=== PATIENT | female | born 1965 | race Caucasian/White ===

== ENCOUNTER 2024-12-28 11:24 | Inpatient (IN) | payer OTHER, SELFPAY ==
[2024-12-28] VITALS (14 sets, daily range): BP systolic 125–200; BP diastolic 77–108; PULSE 67–111; RESP 13–23; TEMP 36.2–36.3; O2SAT 92–99; BMI 41.5
--- NOTE | 2024-12-28 11:32 | DI.RAD.S_ITS ---
PROCEDURE: XR CHEST 1V INDICATIONS: Shortness of breath TECHNIQUE: One view of the chest was acquired. COMPARISON: None. FINDINGS: Surgical changes and devices: None. Lungs and pleura: Ill-defined airspace opacities are seen scattered in bilateral lung bajwa. No pleural effusions or pneumothorax. Mediastinum: Mediastinal contours appear normal. Heart size is normal. Bones and chest wall: No suspicious bony lesions. Overlying soft tissues appear unremarkable. IMPRESSION: Finding is concerning for bilateral multilobar infiltrates. Clinical correlation and follow-up is recommended. No pleural effusion or pneumothorax. Dictated by: Silvestre Gotti M.D. on 12/28/2024 at 12:11 Approved by: Silvestre Gotti M.D. on 12/28/2024 at 12:12
--- NOTE | 2024-12-28 11:39 | EKG_ITS ---
[facility] [address], [place] [address] Test Date: 2024-12-28 Pat Name: Swetha Pressley Department: [facility] Room: Gender: Female Marketing Strategy Analyst: SHELBIE : 1965 Requested By: Order Number: [id number] Reading MD: Marty Marti MD Measurements Intervals [place] Rate: 76 P: 62 SC: 132 QRS: 15 QRSD: 98 T: 58 QT: 378 QTc: 425 Interpretive Statements Normal sinus rhythm Electronically Signed On 12-30-2024 11:51:21 PDT by Marty Marti MD
--- NOTE | 2024-12-28 11:46 | ED.SOB ---
HPI - SOB/Dyspnea General Chief Complaint: Shortness of Breath/Dyspnea Stated Complaint: SOB Time Seen by Provider: 12/28/24 11:37 Source: patient Mode of arrival: Ambulatory History of Present Illness HPI Narrative: 59-year-old female with a past medical history significant for hypertension, PE secondary to control only on full aspirin, factor 5 Leiden, presents with coughing up clear liquid, shortness of breath, dyspnea on exertion. Patient denies active chest pain, back pain, sore throat, nausea, vomiting, diaphoresis, fever, chills, leg pain, leg swelling or sick contacts. Other than what is stated 14 point review of system is negative. Related Data Allergies Allergy/AdvReac Type Severity Reaction Status Date / Time No Known Drug Allergies Allergy Verified 12/28/24 11:28 Review of Systems Review of Systems ROS Unobtainable: All systems reviewed & are unremarkable except as noted in HPI and below Patient History Social History Smoking Status: Current every day smoker Smoking Status: Current every day smoker Exam Narrative Exam Narrative: GENERAL: [59] year old patient appears stated age. Well-developed patient, in moderate distress. HEAD: Atraumatic. Normocephalic. EYES: Pupils equal round and reactive. Extraocular motions intact. No scleral icterus. No injection or drainage. ENT: Nose without bleeding, purulent drainage. Throat without erythema, tonsillar hypertrophy or exudate. Airway patent. NECK: Trachea midline. Non tender CARDIOVASCULAR: Regular rate and rhythm without murmurs, gallops, or rubs. RESPIRATORY:Decreased breath sounds bilaterally with crackles at bases GASTROINTESTINAL: Abdomen soft, non-tender, nondistended. EXTREMITIES: No edema or joint tenderness. BACK: Nontender without deformity or crepitance. No flank tenderness. NEURO: AOx3. SKIN: No rash or erythema of visible areas Initial Vital Signs Initial Vital Signs: Vital Signs Temperature 97.1 F L 12/28/24 11:28 Pulse Rate 87 12/28/24 11:28 Respiratory Rate 22 12/28/24 11:28 Blood Pressure 175/84 H 12/28/24 11:28 Pulse Oximetry 92 12/28/24 11:28 Oxygen Delivery Method Room Air 12/28/24 11:28 Course Orders Ordered: ED Orders 12/28/24 11:32 XR chest 1V Stat EKG-12 Lead Stat RT Consult Eval and Treat STAT 12/28/24 11:42 Complete Blood Count AUTO DIFF Stat Comprehensive Metabolic Panel Stat Lactate (Lactic Acid) Stat NT-proBNP (BNP-Adult 18+) Stat Procalcitonin Stat Prothrombin Time INR Stat Troponin I Stat 12/28/24 11:55 CT angio chest PE protocol Stat 12/28/24 11:56 Blood Culture Stat 12/28/24 13:32 Covid-19 + FLU A/B + RSV - PCR Stat Discontinued Medications Albuterol/Ipratropium (Albuterol/Ipratropium 3 Ml Ampul) 3 ml INH NOW ONE Stop: 12/28/24 11:57 Last Admin: 12/28/24 12:03 Dose: 3 ml Documented By: REBECCA Ceftriaxone Sodium 1,000 mg/ (Sodium Chloride) 100 mls @ 200 mls/hr IV NOW ONE Stop: 12/28/24 12:32 Last Infusion: 12/28/24 13:46 Dose: Infused Documented By: Admin: 12/28/24 13:06 Dose: 200 mls/hr Documented By: REBECCA Azithromycin 500 mg/ Dextrose 250 mls @ 250 mls/hr IV NOW ONE Stop: 12/28/24 12:32 Last Admin: 12/28/24 13:52 Dose: 250 mls/hr Documented By: KYLAH Vital Signs Vital signs: Vital Signs - 8 hr 12/28/24 11:28 12/28/24 11:35 12/28/24 11:51 Temperature 97.1 F L Pulse Rate 87 111 H 84 Respiratory Rate 22 Blood Pressure 175/84 H Pulse Oximetry 92 95 Oxygen Delivery Method Room Air Nasal Cannula Oxygen Flow Rate 3 12/28/24 11:51 12/28/24 12:00 12/28/24 12:00 Temperature Pulse Rate 79 Respiratory Rate 19 Blood Pressure 200/108 H 191/106 H Pulse Oximetry 96 Oxygen Delivery Method Nasal Cannula Oxygen Flow Rate 3 12/28/24 12:33 12/28/24 13:00 12/28/24 13:13 Temperature Pulse Rate 83 83 Respiratory Rate 20 22 21 Blood Pressure Pulse Oximetry 92 96 97 Oxygen Delivery Method Nasal Cannula Nasal Cannula Nasal Cannula Oxygen Flow Rate 3 3 3 12/28/24 13:13 12/28/24 13:30 12/28/24 13:30 Temperature Pulse Rate 78 Respiratory Rate 13 Blood Pressure 160/78 H 142/77 H Pulse Oximetry 95 Oxygen Delivery Method Nasal Cannula Oxygen Flow Rate 3 MDM - SOB/Dyspnea Lab Data 12/28/24 11:42 12/28/24 11:42 Labs: Lab Results 12/28/24 12/28/24 Range/Units 11:42 13:32 WBC 7.0 (4.5-11.0) X10^3/uL RBC 5.36 H (4.0-5.2) X10^6/uL Hgb 15.2 (12.0-16.0) g/dL Hct 44.4 (36-46) % MCV 82.8 (80-100) fL MCH 28.4 (26-34) PG MCHC 34.3 (30-36) % RDW 13.5 (11.6-14.8) % Plt Count 180 (150-400) X10^3/uL Neut % (Auto) 77.0 H (50-75) % Lymph % (Auto) 15.9 L (25-40) % [place] % (Auto) 4.9 (3-14) % Eos % (Auto) 1.8 L (2-4) % Baso % (Auto) 0.4 (0-2) % Neut # (Auto) 5400 (9171-1100) /uL Lymph # (Auto) 1100 (9451-7248) /uL [place] # (Auto) 300 (0-900) /uL Eos # (Auto) 100 (0-450) /uL Baso # (Auto) 0 (0-100) /uL PT 11.6 (9.4-12.5) SECONDS INR 1.0 (0.9-1.3) Sodium 142 (137-145) mmol/L Potassium 3.8 (3.4-5.1) mmol/L Chloride 107 (98-107) mmol/L Carbon Dioxide 28 (22-32) mmol/L BUN 15 (7-17) mg/dL Creatinine 0.76 (0.52-1.04) mg/dL Estimated GFR > 60 (>60) mL/min BUN/Creatinine Ratio 19.7 (6-22) Glucose 139 H (70-99) mg/dL Lactate 1.5 (0.7-2.1) mmol/L Calcium 9.0 (8.4-10.2) mg/dL Total Bilirubin 0.6 (0.2-1.3) mg/dL AST 35 (14-36) IU/L ALT 28 (<35) IU/L Alkaline Phosphatase 122 (38-126) U/L Troponin I < 0.012 (0.01-0.034) ng/mL NT-Pro-B Natriuret Pep 507 H (<125) pg/mL Total Protein 7.5 (6.3-8.2) g/dL Albumin 4.4 (3.5-5.0) g/dL Globulin 3.1 (1.7-4.1) g/dL Albumin/Globulin Ratio 1.4 (1.0-2.8) Procalcitonin 0.036 (<0.5) ng/mL SARS-CoV-2 (PCR) Negative (Negative) Influenza A (RT-PCR) Flu a negative (NEGATIVE) Influenza B (RT-PCR) Flu b negative (NEGATIVE) RSV (PCR) Negative (Negative) Imaging Data Chest x-ray: Radiologist's Impression: [place] [address] XRay Report Signed Patient: Swetha Pressley MR#: [id number] : 1965 Acct:[id number] Age/Sex: 59 / F Date of Service: 12/28/24 Loc: ED Accession Number: [id number] Procedure: XR chest 1V Ordering Provider: Marty Herr D.O. PROCEDURE: XR CHEST 1V INDICATIONS: Shortness of breath TECHNIQUE: One view of the chest was acquired. COMPARISON: None. FINDINGS: Surgical changes and devices: None. Lungs and pleura: Ill-defined airspace opacities are seen scattered in bilateral lung bajwa. No pleural effusions or pneumothorax. Mediastinum: Mediastinal contours appear normal. Heart size is normal. Bones and chest wall: No suspicious bony lesions. Overlying soft tissues appear unremarkable. IMPRESSION: Finding is concerning for bilateral multilobar infiltrates. Clinical correlation and follow-up is recommended. No pleural effusion or pneumothorax. CT scan - chest: Radiologist's Impression: [place] [address] CT Scan Report Signed Patient: Swetha Pressley MR#: [id number] : 1965 Acct:[id number] Age/Sex: 59 / F Date of Service: 12/28/24 Loc: ED Accession Number: [id number] Procedure: CT angio chest PE protocol Ordering Provider: Marty Herr D.O. PROCEDURE: CT ANGIO CHEST PE PROTOCOL INDICATIONS: hx of pe sob 02 sat 70s TECHNIQUE: After the administration of intravenous contrast, 2 mm thick sections acquired from the pulmonary apices to the posterior costophrenic angles. 3-dimensional maximum intensity projection (MIP) coronal and sagittal reformats were then acquired through the thorax. For radiation dose reduction, the following was used: automated exposure control, adjustment of mA and/or kV according to patient size. COMPARISON: [facility], CR, XR CHEST 1V, 12/28/2024, 11:36. FINDINGS: Image quality: Diagnostic. Pulmonary arteries: Pulmonary arteries are normal in size, and demonstrate no intraluminal filling defects to suggest central pulmonary embolism. Lower Neck: No enlarged lymph nodes. Thyroid: No thyroid nodules which require sonographic follow up, per consensus guidelines. Axillae: No enlarged lymph nodes. Chest Wall: Unremarkable. Bones: Unremarkable. Lungs and Pleura: No pneumothorax or pleural effusions. Extensive airspace opacities and ground-glass opacities are seen scattered throughout bilateral lung bajwa. Heart: Heart size is normal. No pericardial effusion. Thoracic Vessels: No aortic aneurysm. Mediastinum and Vicky: Mildly prominent mediastinal lymph nodes are seen measures up to 1.2 cm in short axis diameter in precarinal space. Prominent hilar lymph nodes are also seen measures up to 1.3 cm in size in right hilar region. Esophagus: No wall thickening. Small hiatal hernia. Upper Abdomen: Visualized upper abdomen solid organs and bowel loops appear normal. IMPRESSION: 1. No pulmonary embolus. No thoracic aortic aneurysm or gross dissection. 2. Extensive bilateral pulmonary airspace opacities and ground-glass opacities concerning for infection from atypical pneumonia such as COVID-19. Clinical correlation is recommended. No pleural effusion or pneumothorax. 3. Enlarged mediastinal and hilar lymph nodes likely reactive in nature. Dictated by: Silvestre Gotti M.D. on 12/28/2024 at 12:57 Approved by: Silvestre Gotti M.D. on 12/28/2024 at 13:00 ECG Data Interpretation: NSR HR 76 MO 132 QRS 98 QT 378 NO previous EKG to compare against MDM Narrative Medical decision making narrative: Vital signs nurse triage note medication list previous ER visits in all imaging studies reviewed. Chest x-ray and CT scan showed no pulmonary embolism no thoracic aortic aneurysm or gross dissection but extensive bilateral pulmonary airspace opacities and ground-glass opacities concerning for infection from atypical pneumonia such as COVID-19 however COVID flu RSV are all negative patient was given Rocephin and Zithromax here currently satting at 93% on 3 L. patient has had blood cultures x2 obtained. No white count or left shift lactic acid and procalcitonin level are all normal. BNP 507 EKG showed normal sinus rhythm no STT wave change. Differential diagnosis includes COVID flu RSV pneumonia sepsis PE pneumothorax. Case discussed with Dr. Jude kumar who has graciously accepted the patient for inpatient admission Discharge Plan Departure Patient Disposition: Admitted As Inpatient Clinical Impression: Hypoxia Community acquired pneumonia Qualifiers: Laterality: unspecified laterality Qualified Code(s): J18.9 - Pneumonia, unspecified organism Admit Date/Time: 12/28/24 14:34 Admit Provider: Emilio Ruiz
--- NOTE | 2024-12-28 11:46 | PC.NURSE ---
After ambulation from triage to room 9 patient became significantly tachypneic and pulse ox was 77%. Immediately placed on 4L O2 by NC and encouraged pursed breathing. Patient recovered to 93-94% pulse ox on 4L by NC after [address] Herr made aware of condition.
[2024-12-28 11:51] LABS: Add Manual Diff / Slide Review NO; Basophils Absolute Auto 0 /uL (0-100); Basophils Percent Auto 0.4 % (0-2); Eosinophils Absolute Auto 100 /uL (0-450); Eosinophils Percent Auto 1.8 % (2-4); Hematocrit 44.4 % (36-46); Hemoglobin 15.2 g/dL (12.0-16.0); Lymphocytes Absolute Auto 1100 /uL (1100-4500); Lymphocytes Percent Auto 15.9 % (25-40); Mean Corpuscular HGB Conc 34.3 % (30-36); Mean Corpuscular Hemoglobin 28.4 PG (26-34); Mean Corpuscular Volume 82.8 fL (80-100); Monocytes Absolute Auto 300 /uL (0-900); Monocytes Percent Auto 4.9 % (3-14); Neutrophils Absolute Auto 5400 /uL (1500-7000); Platelet Count 180 X10^3/uL (150-400); Red Blood Cell Count 5.36 X10^6/uL (4.0-5.2); Red Cell Distribution Width 13.5 % (11.6-14.8)
--- NOTE | 2024-12-28 11:55 | DI.CT.S_ITS ---
PROCEDURE: CT ANGIO CHEST PE PROTOCOL INDICATIONS: hx of pe sob 02 sat 70s TECHNIQUE: After the administration of intravenous contrast, 2 mm thick sections acquired from the pulmonary apices to the posterior costophrenic angles. 3-dimensional maximum intensity projection (MIP) coronal and sagittal reformats were then acquired through the thorax. For radiation dose reduction, the following was used: automated exposure control, adjustment of mA and/or kV according to patient size. COMPARISON: [facility], CR, XR CHEST 1V, 12/28/2024, 11:36. FINDINGS: Image quality: Diagnostic. Pulmonary arteries: Pulmonary arteries are normal in size, and demonstrate no intraluminal filling defects to suggest central pulmonary embolism. Lower Neck: No enlarged lymph nodes. Thyroid: No thyroid nodules which require sonographic follow up, per consensus guidelines. Axillae: No enlarged lymph nodes. Chest Wall: Unremarkable. Bones: Unremarkable. Lungs and Pleura: No pneumothorax or pleural effusions. Extensive airspace opacities and ground-glass opacities are seen scattered throughout bilateral lung bajwa. Heart: Heart size is normal. No pericardial effusion. Thoracic Vessels: No aortic aneurysm. Mediastinum and Vicky: Mildly prominent mediastinal lymph nodes are seen measures up to 1.2 cm in short axis diameter in precarinal space. Prominent hilar lymph nodes are also seen measures up to 1.3 cm in size in right hilar region. Esophagus: No wall thickening. Small hiatal hernia. Upper Abdomen: Visualized upper abdomen solid organs and bowel loops appear normal. IMPRESSION: 1. No pulmonary embolus. No thoracic aortic aneurysm or gross dissection. 2. Extensive bilateral pulmonary airspace opacities and ground-glass opacities concerning for infection from atypical pneumonia such as COVID-19. Clinical correlation is recommended. No pleural effusion or pneumothorax. 3. Enlarged mediastinal and hilar lymph nodes likely reactive in nature. Dictated by: Silvestre Gotti M.D. on 12/28/2024 at 12:57 Approved by: Silvestre Gotti M.D. on 12/28/2024 at 13:00
[2024-12-28] MEDS: ALBUTEROL/IPRATROPIUM 3 ML AMPUL INH ×3 (12:03→23:06)
[2024-12-28 12:05] LABS: Prothrombin Time 11.6 SECONDS (9.4-12.5)
[2024-12-28 12:07] LABS: Lactate (Lactic Acid) 1.5 mmol/L (0.7-2.1)
[2024-12-28 12:08] LABS: Alanine Aminotransferase 28 IU/L (<35); Albumin 4.4 g/dL (3.5-5.0); Albumin Globulin Ratio 1.4 (1.0-2.8); Alkaline Phosphatase 122 U/L (38-126); Aspartate Aminotransferase 35 IU/L (14-36); BUN Creatinine Ratio 19.7 (6-22); Bilirubin Total 0.6 mg/dL (0.2-1.3); Blood Urea Nitrogen 15 mg/dL (7-17); Carbon Dioxide 28 mmol/L (22-32); Chloride 107 mmol/L (98-107); Estimated Glomerular Filt Rate > 60 mL/min (>60); Globulin 3.1 g/dL (1.7-4.1); Glucose 139 mg/dL (70-99); HEMOLYSIS < 15 (0-50); Potassium 3.8 mmol/L (3.4-5.1); Sodium 142 mmol/L (137-145); Total Protein 7.5 g/dL (6.3-8.2)
[2024-12-28 12:20] LABS: NT-proBNP (BNP-Adult 18+) 507 pg/mL (<125); Troponin I < 0.012 ng/mL (0.01-0.034)
[2024-12-28 12:39] LABS: Procalcitonin 0.036 ng/mL (<0.5)
[2024-12-28] MEDS: cefTRIAXone 1,000 MG in SODIUM CHLORIDE 0.9% 100 ML 200 MG IV (13:06)
[2024-12-28] MEDS: AZITHROMYCIN 500 MG in DEXTROSE 5% IN WATER 250 ML 250 MG IV (13:52)
[2024-12-28 14:18] LABS: Influenza A - CEPHEID Flu A NEGATIVE (NEGATIVE); Influenza B - CEPHEID Flu B NEGATIVE (NEGATIVE); Respiratory Syncytial Virus Negative (Negative)
[2024-12-28 14:20] LABS: COVID-19 CEPHEID 4-PLEX PCR Negative (Negative)
[2024-12-28] MEDS: ONDANSETRON 4 MG/2 ML INJ IV ×2 (15:08→17:17)
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
[2024-12-28] MEDS: ACETAMINOPHEN 325 MG TABLET 650 MG PO ×2 (16:29→20:52)
[2024-12-28] MEDS: cefTRIAXone 2,000 MG in SODIUM CHLORIDE 0.9% 100 ML 200 MG IV (16:29)
[2024-12-28] MEDS: DOXYCYCLINE 100 MG in SODIUM CHLORIDE 0.9% 100 ML IV (17:10)
[2024-12-28] MEDS: HYDROCODONE/ACET 5/325 TABLET 1 TAB PO ×2 (17:17→20:53)
[2024-12-28] MEDS: HEPARIN 5,000 UNIT/ML VIAL 5000 UNIT SUBCUT (20:54)
[2024-12-29] VITALS (8 sets, daily range): BP systolic 123–142; BP diastolic 66–76; PULSE 65–102; RESP 14–20; TEMP 36.3–36.6; O2SAT 96–98
[2024-12-29] MEDS: ACETAMINOPHEN 325 MG TABLET 650 MG PO ×4 (04:02→22:00)
[2024-12-29] MEDS: DOXYCYCLINE 100 MG in SODIUM CHLORIDE 0.9% 100 ML IV ×2 (04:02→15:18)
[2024-12-29] MEDS: PANTOPRAZOLE DR 20 MG TABLET PO (05:19)
[2024-12-29] MEDS: AZITHROMYCIN 500 MG in DEXTROSE 5% IN WATER 250 ML 250 MG IV (08:34)
[2024-12-29] MEDS: HEPARIN 5,000 UNIT/ML VIAL 5000 UNIT SUBCUT ×2 (08:35→22:00)
[2024-12-29] MEDS: ALBUTEROL/IPRATROPIUM 3 ML AMPUL INH ×4 (08:40→19:16)
[2024-12-29] MEDS: HYDROCODONE/ACET 5/325 TABLET 1 TAB PO (09:38)
[2024-12-29 10:13] LABS: BUN Creatinine Ratio 18.8 (6-22); Blood Urea Nitrogen 12 mg/dL (7-17); Calcium 9.1 mg/dL (8.4-10.2); Carbon Dioxide 25 mmol/L (22-32); Chloride 103 mmol/L (98-107); Estimated Glomerular Filt Rate > 60 mL/min (>60); Glucose 270 mg/dL (70-99); HEMOLYSIS < 15 (0-50); Potassium 4.3 mmol/L (3.4-5.1); Sodium 139 mmol/L (137-145)
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
[2024-12-29] MEDS: SERTRALINE 50 MG TABLET PO (10:59)
[2024-12-29] MEDS: cefTRIAXone 2,000 MG in SODIUM CHLORIDE 0.9% 100 ML 200 MG IV (14:21)
[2024-12-29] MEDS: MELATONIN 3 MG TABLET 9 MG PO (23:45)
[2024-12-30] VITALS: BP 159/79; PULSE 77; RESP 20; TEMP 36.7; O2SAT 94
[2024-12-30] MEDS: DOXYCYCLINE 100 MG in SODIUM CHLORIDE 0.9% 100 ML IV (04:04)
[2024-12-30] MEDS: ACETAMINOPHEN 325 MG TABLET 650 MG PO (04:06)
[2024-12-30] MEDS: PANTOPRAZOLE DR 20 MG TABLET PO (05:37)
[2024-12-30 06:00] VITALS: BP 142/76; PULSE 61; RESP 20; TEMP 36.6; O2SAT 97
[2024-12-30 06:19] LABS: BUN Creatinine Ratio 26.7 (6-22); Blood Urea Nitrogen 16 mg/dL (7-17); Calcium 9.3 mg/dL (8.4-10.2); Carbon Dioxide 25 mmol/L (22-32); Chloride 107 mmol/L (98-107); Estimated Glomerular Filt Rate > 60 mL/min (>60); Glucose 199 mg/dL (70-99); HEMOLYSIS < 15 (0-50); Potassium 4.2 mmol/L (3.4-5.1); Sodium 139 mmol/L (137-145)
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
[2024-12-30] MEDS: AZITHROMYCIN 500 MG in DEXTROSE 5% IN WATER 250 ML IV (08:12)
[2024-12-30] MEDS: lisinopriL 10 MG TABLET PO (08:13)
[2024-12-30] MEDS: hydroCHLOROthiazide 25 MG TABLET 12.5 MG PO (08:13)
[2024-12-30] MEDS: SERTRALINE 50 MG TABLET PO (08:14)
[2024-12-30 08:42] VITALS: PULSE 69; RESP 16; O2SAT 99
[2024-12-30] MEDS: ALBUTEROL/IPRATROPIUM 3 ML AMPUL INH (08:42)
--- NOTE | 2024-12-30 11:46 | PC.NURSE ---
Patient IS A&Ox4, VSS, afebfrile on RA. She reports tolerating activity much better and feeling better overall. She has a neb treatment and showers. MD at bedside this a.m. clearing her for discharge home today on oral abx, steroid,and inhaler. She verbalizes understanding of returning to ED if symptoms worsen, or a fever of 101.5 as well as understanding of medications. She is escorted via w/ch by [employer]INE [employer] to private vehicle with [id number] this a.m. with all of her belongings for discharge home at approximately 11:30 a.m.
[2024-12-31 11:14] LABS: Legionella pneumo Antigen Negative (Negative)
[2025-01-02 21:08] LABS: M pneumoniae IgG Ab 390 U/mL (0-99)
== END 2024-12-30 11:30 | disposition home or self-care (01) | DRG 133 ==
LOC: ED 12:48 → AC 14:35
PROVIDERS: Admitting Provider Internal Medicine; Emergency Provider Family Medicine; PCP Family Medicine; Referring Provider Family Medicine; Visit Provider Internal Medicine
DX: J96.01 Acute respiratory failure with hypoxia (principal); D68.51 Activated protein C resistance; F17.200 Nicotine dependence, unspecified, uncomplicated; J18.9 Pneumonia, unspecified organism; Z86.711 Personal history of pulmonary embolism
CPT/HCPCS: 0241U; 36415; 71045; 71275; 80048; 80053; 83605; 83880; 84145; 84484; 85025; 85610; 86631; 86632; 86738; 87040; 87449; 93005; 93010; 94640; 94762; 96365; 96367; 96375; 99285; J0696; J1644; J2405; J2919; Q9967